=== PATIENT | female | born 1935 | race Caucasian/White ===

== ENCOUNTER 2016-11-24 07:39 | Inpatient (IN) | payer MEDICARE ==
[~2016-11-24] VITALS: Ht 170.2 cm; Wt 84.7 kg
[2016-11-24] VITALS (14 sets, daily range): BP systolic 111–156; BP diastolic 56–85; PULSE 51–89; RESP 14–20; O2SAT 93–98
[2016-11-24] MEDS: Lactated Ringer's 1,000 ML IV SCH ×3 (07:35→13:46)
[~2016-11-24 07:39] MED LIST: AMLO10TA3 PO; ASCO500C6 PO; ASPI-628 PO; ATOR10TA66 PO; Bupivacaine Liposome 1.3% 20 mL Inj INFILTRATE SCH; CHOL100043 PO; CRAN1TAB5 PO; DOCU100T2 PO; FLUT15.88 NS; HYDR25TA4 PO; LEVO137T18 PO; LOSA100T3 PO; MAGN100T5 PO; MELO-259 PO; METO25TA6 PO; MULT-1018 PO; OMEG1CAP56 PO; OMEP-113 PO; POTA10TA7 PO; SERT50TA9 PO; UBID1CAP52 PO
[2016-11-24] MEDS ORDERED: CeFAZolin 2 Gm/50 mL D5W Duplex Bag IV ONE (07:42)
[2016-11-24] MEDS: Vancomycin Inj 1,500 MG in 0.9% Sodium Chloride 500 ML IV SCH ×2 (08:02→13:47)
[2016-11-24] MEDS ORDERED: Tranexamic Acid 100 mg/mL 10 mL Inj ONE (08:44)
[2016-11-24] MEDS ORDERED: 0.9% Sodium Chloride 100 ML ONE (08:44)
[2016-11-24] MEDS ORDERED: fentaNYL-PF 50 mCg/mL 2 mL Inj ONE (09:02)
[2016-11-24] MEDS ORDERED: Propofol 10 mg/mL 20 mL Inj ONE (09:02)
[2016-11-24] MEDS: CeFAZolin Inj 2 GM in IV Premix 1 EACH IV SCH ×3 (09:02→18:34)
[2016-11-24] MEDS ORDERED: Phenylephrine 10,000 mCg/mL Inj ONE (09:02)
[2016-11-24] MEDS ORDERED: Dexamethasone 4 mg/mL Inj ONE (09:02)
[2016-11-24] MEDS ORDERED: Ondansetron 2 mg/mL 2 mL Inj ONE (09:02)
[2016-11-24] MEDS ORDERED: Bupivacaine Liposome 1.3% 20 mL Inj INFILTRATE ONE (09:48)
[2016-11-24] MEDS ORDERED: Bupivacaine-MPF 0.5% 30 mL Inj INFILTRATE ONE (09:49)
[2016-11-24] MEDS ORDERED: 0.9% Sodium Chloride 10 mL Inj INFILTRATE ONE (09:49)
[2016-11-24] MEDS ORDERED: Lactated Ringer's 1,000 ML IV ONE (09:52)
[2016-11-24] MEDS ORDERED: Polyethylene Glycol (PEG) 17 Gm Powder PO PRN (11:15)
[2016-11-24] MEDS ORDERED: diphenhydrAMINE 25 mg Capsule PO PRN (11:15)
[2016-11-24] MEDS ORDERED: Magnesium Hydroxide 10 mL Oral Concentration PO PRN (11:15)
[2016-11-24] MEDS ORDERED: Lactated Ringer's 1,000 ML IV SCH (11:32)
[2016-11-24] MEDS ORDERED: Lactated Ringer's 500 ML IV PRN (11:32)
[2016-11-24] MEDS ORDERED: EPHEDrine Sulfate 50 mg/mL Inj IVPUSH PRN (11:35)
[2016-11-24] MEDS ORDERED: HYDROmorphone 1 mg/mL Inj IVPUSH PRN (11:35)
[2016-11-24] MEDS ORDERED: Phenylephrine 10,000 mCg/mL Inj IVPUSH PRN (11:35)
[2016-11-24] MEDS ORDERED: fentaNYL-PF 50 mCg/mL 2 mL Inj IVPUSH PRN (11:35)
[2016-11-24] MEDS ORDERED: Ondansetron 2 mg/mL 2 mL Inj IVPUSH PRN (11:35)
[2016-11-24] MEDS ORDERED: MetoCLOpramide 5 mg/mL 2 mL Inj IVPUSH PRN (11:35)
[2016-11-24] MEDS ORDERED: hydrALAZINE 20 mg/mL Inj IVPUSH PRN (11:35)
[2016-11-24] MEDS ORDERED: Dexamethasone 4 mg/mL Inj IVPUSH PRN (11:35)
[2016-11-24] MEDS ORDERED: Labetalol 5 mg/mL 20 mL Inj IV PRN (11:35)
[2016-11-24] MEDS ORDERED: Atropine 0.4 mg/mL Inj IVPUSH PRN (11:35)
--- NOTE | 2016-11-24 11:45 | PCM.ANEP1 ---
Post Anesthesia PACU Phase 1 Assessment Date of Service: Nov 24, 2016 Vital Signs Vital Signs Date Time Temp Pulse Resp B/P Pulse Ox O2 Delivery O2 Flow Rate FiO2 11/24/16 11:37 68 16 117/69 93 Room Air 11/24/16 11:34 15 95 11/24/16 11:30 67 15 127/56 95 Room Air 11/24/16 11:25 69 14 114/83 95 Room Air 11/24/16 11:20 36.3 71 17 111/85 94 Room Air 11/24/16 08:04 36.4 51 16 117/85 95 Room Air Anesthetic Administered: Regional Block, SAB Level of Alertness: Awake, talking MATOS's with Equal Strength: No Pain: No Nausea or Vomiting: No CV Function & Hydration Stable: Yes Airway Device: Oxygen Delivery: Room Air Lungs: Normal Air Movement Dermatome Level: T12 (Symphysis Pubis) PACU Phase 2 Assessment Complications: No Follow up Care: N/A Patient Instructions Provided: N/A Ortiz Keller MD Nov 24, 2016 11:45
[2016-11-24] MEDS ORDERED: ASPI-973 PO (11:54)
[2016-11-24] MEDS ORDERED: OMEP20CA11 PO (11:54)
--- NOTE | 2016-11-24 11:55 | OP ---
[address] [address] OPERATIVE REPORT PATIENT: SAM BRAND : 1935 MR#: [id number] ADMIT: 11/24/2016 JOB ID: [id number] DATE OF SURGERY: 11/24/2016 PREOPERATIVE DIAGNOSIS(ES): Left knee degenerative joint disease. POSTOPERATIVE DIAGNOSIS(ES): Left knee degenerative joint disease. PROCEDURE: Left total knee arthroplasty. SURGEON: Jersey Salgado DO. ASSISTANTS: Shaina Sanford PA-C and Lara Kendall DO, PGY1. INDICATIONS: The patient is a 81-year-old female with left knee severe degenerative arthritis who has failed conservative measures and wished to proceed with a left total knee arthroplasty. We discussed the risks, benefits and possible complications of surgery. All questions were answered and she wished to proceed. A home health assistant was required for the successful completion of this procedure. PROCEDURE IN DETAIL: The patient is brought to the operating room. She was given preoperative antibiotic, 1 g TXA, preoperatively, and a surgical time-out was performed. The left lower extremity was sterilely prepped and draped. A tourniquet was used for hemostasis. An incision was made centered over the anterior left knee. Dissection was carefully carried through the subcutaneous tissue. Electrocautery was used for hemostasis. A split was then made in the quad tendon leaving a cuff of tissue for repair. This was taken along the medial retinaculum and down onto the proximal medial tibial face. A minimal subperiosteal release was performed in order to gain exposure. A portion of the fat pad was removed, as was a portion of the anterior horn of medial and lateral menisci. The patella was everted, and the femur was instrumented with an intramedullary cutting jig. A 5-degree distal valgus cut angle was chosen, and 13 mm of resection was planned for, as she had a very hypoplastic lateral femoral condyle. The block was pinned into position and the cut was performed. The tibial cut was then performed next with an extramedullary tibial cutting guide placed parallel to the long axis of the tibia. A minimal tibial cut was made initially and then, 2 mm of additional cut was performed. Her bone was quite soft and osteoporotic, unfortunately. The femur was then sized, felt to be a size 6. With 5 degrees of external rotation the femoral cutting jig was pinned into position. The distal femoral cuts were performed, completed with an osteotome. The notch cut was then performed, and the knee was then trialed with a 6 femur and 4 tibia, which worked quite nicely, allowing full flexion and full extension with equal gaps medially and laterally. The remainder of the medial and lateral menisci were removed. The tibia was drilled and punched. The femur was drilled and the bony surfaces were washed and dried. The patella was also resurfaced with a free-hand type technique, cut from initial thickness of 26 to a thickness of 15. A 38 mm patellar button was drilled for, trialed and had excellent tracking. The components were then cemented into position beginning with the DePuy Attune 4 tibia, followed by the DePuy Attune 6 narrow posterior stabilized femur and the 38 mm patellar button. A 5 mm thick poly was chosen, impacted in position and after the cement had been allowed to polymerize, the tourniquet was let down. Electrocautery was used for hemostasis. The wounds were then closed with 0 Vicryl and #1 Surgilon to repair the medial retinaculum and quad tendon. The subcu was closed with 2-0 Vicryl, and the skin was closed with a running subcuticular V-Loc suture. A mixture of Exparel, Marcaine and saline was added as an adjunct local anesthetic. Sterile dressings were applied. Patient tolerated the procedure well. Blood loss was 25 cc. POSTOPERATIVE PROTOCOL: Have the patient weightbear to tolerance, use a walker for ambulation. Will use Lovenox for DVT prophylaxis 40 mg daily for 10 days and [place] 5/325 for pain, as the patient would like to avoid narcotics as much as possible.
--- NOTE | 2016-11-24 12:10 | DRSVH ---
PROCEDURE: X-RAY LEFT KNEE, ONE OR TWO VIEWS ([id number]) INDICATIONS: post operative images TECHNIQUE: 2 view(s) of the knee acquired. COMPARISON: None. FINDINGS: Bones: Patient is status post knee joint arthroplasty. Hardware components are in expected position s. Visualized bony structures are intact. Soft tissues: Overlying postoperative changes are noted. IMPRESSION: Status post left knee arthroplasty. Dictated by: Sammie Tobar M.D. on 11/24/2016 at 12:08 Approved by: Sammie Tobar M.D. on 11/24/2016 at 12:09
--- NOTE | 2016-11-24 12:24 | PCM.HPANE ---
Patient Data Surgeon Admitting Provider: Attending Provider:Jersey Salgado DO Primary Care Physician:Sudhir Hall Other Provider:Shaylee Henley Anesthesia Reason for Visit Left Knee Arthritis Ht/WT & BMI Height (Feet): 5 Height (Inches): 7 Weight (Kilograms): 84.9 Body Mass Index 29.00 Allergies Coded Allergies: aspirin (Verified Adverse Reaction, Intermediate, heartburn with larger doses, 04/24/14) codeine (Verified Adverse Reaction, Unknown, "really sick to my stomach", 11/20/16) "intolerance to codeine" per H&P Past Anesthesia History Anesthesia History: Positive for:: Anesthesia Reactions (nausea and vomiting), Denies:: Abnormal Airway, Difficult Intubation, Fam Anesthesia Reaction, Fam Malignant Hypertherm, Malignant Hyperthermia Diabetes History Hx Diabetes?: No MRSA MRSA: No Medications Blood Thinner: Aspirin Reported Medications Aspirin 81 Mg Riwypy93 Mg PO DAILY #2 11/24/16 Omeprazole 20 Mg Capsule.dr20 Mg PO BID #180 11/24/16 Hydrochlorothiazide 25 Mg Oyavlf31 Mg PO DAILY #2 TABLET Ref 0 11/20/16 Potassium Chloride ER (Klor-Con 10)10 Meq Gjtokh04 Meq PO DAILY Ref 0 11/20/16 Magnesium Amino Acid Chelate (Magnesium)100 Mg Ouhrxp445 Mg PO DAILY 11/20/16 Meloxicam 7.5 Mg Tablet7.5 Mg PO DAILY 30 Days Ref 0 11/20/16 Sertraline HCl (Sertraline)50 Mg Zofcne04 Mg PO DAILY 30 Days Ref 0 11/20/16 Cholecalciferol (Vitamin D3) (Vitamin D)1,000 Unit Tablet1,000 Unit PO BID #1 BOTTLE Ref 0 11/20/16 Fluticasone Propionate 50 Mcg/Actuation [place].susp15.8 Ml NS DAILY 11/20/16 Cranberry Conc/C/Bacill Coag (Cranberry Tablet)1 Each Tablet1 Each PO BID 10/02/14 Ascorbic Acid (Vitamin C)500 Mg Capsule.er500 Mg PO DAILY 08/01/14 [place]-3 Fatty Acids/Fish Oil ([place] 3 1,000 mg Softgel)1 Each Capsule1 Each PO DAILY 08/01/14 Multivitamin (Multi Vitamin Daily)1 Each Tablet1 Each PO DAILY 30 Days Ref 0 08/01/14 Ubidecarenone/Vit E Acetate (Co Q-10 100 mg Softgel)1 Each Capsule1 Each PO DAILY 08/01/14 Atorvastatin Calcium 10 Mg Hqagtv12 Mg PO DAILY 30 Days Ref 0 03/27/14 Losartan Potassium (Cozaar)100 Mg Digdkb243 Mg PO DAILY 03/27/14 Amlodipine 10 Mg Ofmiuy14 Mg PO DAILY 30 Days Ref 0 03/27/14 Metoprolol Tartrate 25 Mg Duylle35 Mg PO BID 30 Days Ref 0 03/27/14 Levothyroxine (Levoxyl)137 Mcg Egkywa657 Mcg PO DAILY 30 Days Ref 0 03/27/14 Discontinued Reported Medications Docusate Sodium 100 Mg Inhoqw810 Mg PO HS PRN For Constipation 30 Days Ref 0 10/02/14 Omeprazole Magnesium (Omeprazole)20 Mg Capsule.dr20 Mg PO BID 30 Days Ref 0 03/27/14 Aspirin (Aspir 81)81 Mg Tablet.dr81 Mg PO DAILY Ref 0 03/27/14 Amoxicillin 500 Mg Ajzrkk387 Mg PO q 12 hours x 7 days 10 Days Ref 0 10/02/14 Fluticasone Propionate (Fluticasone Propionate Nasal)16 Gm [place].susp1 [place] NS BID PRN prn #16 GM Ref 0 10/02/14 Cholecalciferol (Vitamin D3) (Vitamin D)1,000 Unit Tablet1,000 Unit PO DAILY #1 BOTTLE Ref 0 08/01/14 Bupropion ER 150 Mg Tablet.er150 Mg PO BID 30 Days Ref 0 03/27/14 History History of ENT Problems?: Yes HEENT History: Positive for:: Cataracts (s/p surgery) Denies:: Abnormal Airway Difficult Intubation Dysphagia Hearing Problem Sinus Problem TMJ Denture Type: None Teeth Condition: Within Normal Limits Hx of Heart Problems?: Yes Cardiovascular History: Positive for:: Heart Murmur Hypertension Denies:: AICD Atrial Fibrillation Cardiac Surgery Chest Pain Congestive Heart Failure Coronary Artery Disease Edema Irregular Heartbeat Pacemaker Thrombophlebitis Valvular Heart Disease Hx of Respiratory Problem?: Yes Respiratory History: Positive for:: Pneumonia (hx of lung abcess) Denies:: Asthma COPD Chest Surgery Cough Dyspnea Emphysema Hemoptysis Oxygen Administration Pulmonary Embolism Tuberculosis Use of C-PAP Machine Use of Inhalers / NEBS Hx Neurologic Problems?: No Neurological History: Denies:: Alzheimer's Disease CVA Dementia Dizziness Headaches Multiple Sclerosis Parkinson's Disease Seizures TIA Hx of GI Problems?: Yes Other GI Pertinent History: Hx of Barretts Esophagus, Hiatal Hernia with repair in 2015. Patient states the hiatal hernia "has returned and needs to be repaired again". Hx of Problems?: No Genitourinary History: Positive for:: Urinary Tract Infection (currently being treated) Female Hx: Denies:: Currently Endometriosis Pelvic Inflammatory Problems with Breasts? Skin History: Denies:: History Skin Disorders? Pressure Ulcers Hx Musculoskeletal Problems?: Yes Musculoskeletal History: Positive for:: Musculoskeletal Trauma (dequervains tendonitis- wearing splint) Osteoarthritis Denies:: Back Injury Degenerative Joint Joint Replacement Hx of Psycho/Social Problems?: Yes Psycho Social History: Positive for:: Hx Depression Denies:: Anxiety Bipolar Disorder Suicide Attempt Hx Surgeries?: Yes (hysterectomy, appy, hiatal hernia) Hx Any Other Health Problems?: Yes Other History: Positive for:: Hospitalization Thyroid Disease (hypothyroidism) Denies:: Cancer Endocrine Disease History Blood Transfusions: Positive for:: Accept Blood Products? Denies:: Blood Transfuse Reaction Blood Transfusions Hx Diabetes: No Hx Alcohol Use: NoHx Substance Use: No Smoking Status: Never Smoker Have You Smoked inLast 12 mo: No Stop/Bang S-Snoring: Do You Snore Loudly: No T-Tired: feel tired, fatigued: No O-Obsered: Observed not breath: No P-Blood Pressure: treated: Yes B- Body Mass Index > 35 kg/m2: No A- Age over 50: Yes N- Neck Large Circumference: No G- Gender Male: No SKYLA Total Score: 2 Risk Assessment Category Category 1A: Patient has history of documented sleep apnea, and HAS NOT received any narcotic, sedative or anesthesia administration during this stay. Category 1B: Patient has history of documented sleep apnea, and HAS received any narcotic , sedative or anesthesia administration during this stay Category 2: Patient has SUSPECTED Obstructive Sleep Apnea, and HAS received any narcotic , sedative or anesthesia administration during this stay. Category 3: Patient has SUSPECTED Obstructive Sleep Apnea and HAS NOT received narcotic, sedative or anesthesia administration during this stay. Category 4: Outpatient in Procedural Areas with known sleep apnea or who screen positive for High Risk via the STOP/BANG questionnaire. Exam Exam General Appearance: Alert, Oriented X3, Cooperative, No Acute Distress HEENT/AIRWAY: MP 2, Neck Movement (from), Mouth Opening (3 FBMO) Lungs: Clear to Auscultation, Normal Air Movement Heart: Exam Unremarkable, Regular Rate/Rhythm, No Murmurs/Rubs/Gallops Meds/Labs/Diagnostics Admission Meds Current Medications Vancomycin HCl 1500 mg/Sodium Chloride 500 ml @ 333.333 mls/hr PREOP IV Last administered on 11/24/16 08:02; Start 11/24/16 at 06:00; Stop 11/24/16 at 18:00 Lactated Ringer's (Lr) 1,000 ml @ 120 mls/hr Q8H20M IV Last administered on 07:35; Start 11/24/16 at 05:00; Stop 11/24/16 at 13:19 Plan Impression Patient chart reviewed, patient interviewed and anesthestic plan with risks, benefits, and alternatives discussed, and informed consent obtained. NPO per Anesth. Guidelines: Yes ASA Physical Status: ASA2 Mod Systemic Disease Anesthetic Plan: Regional Block (LEFT ADDUCTOR CANAL BLOCK), SAB Bene/Risks/Altern/Consents: Yes HP Complete Prior to Induction: Yes Jersey Leon MD Nov 24, 2016 08:06
[2016-11-24] MEDS: 0.9% Sodium Chloride 1,000 ML IV SCH (14:09)
[2016-11-24 15:36] LABS: APPEARANCE,URINE HAZY (CLEAR,HAZY); COLOR,URINE STRAW (YELLOW); OCCULT BLOOD,URINE NEGATIVE (NEGATIVE); UROBILINOGEN,URINE NORMAL (NORMAL)
[2016-11-24] MEDS: Acetaminophen IV 1,000 MG in IV Premix 1 EACH IV PRN ×2 (16:09→22:12)
[2016-11-24] MEDS ORDERED: CeFAZolin Inj 2 GM in Dextrose 5% 50 ML IV SCH (17:15)
[2016-11-24] MEDS: Sodium Chloride LOK Flush 10 mL Syringe IV SCH (18:34)
[2016-11-24] MEDS: HYDROcodone-APAP 5-325 mg Tablet PO PRN (18:37)
[2016-11-24] MEDS ORDERED: Non-Formulary Medication (Cranberry Conc/C/Bacill Coag (Cranberry Tablet) 1 EACH) PO SCH (20:30)
[2016-11-24] MEDS: Senna-Docusate 8.6-50 mg Tablet PO SCH (20:33)
[2016-11-25] VITALS (7 sets, daily range): BP systolic 130–151; BP diastolic 55–71; PULSE 67–81; RESP 16–20; O2SAT 93–97
[2016-11-25] MEDS: Sodium Chloride LOK Flush 10 mL Syringe IV SCH ×3 (00:14→16:30)
[2016-11-25] MEDS: HYDROcodone-APAP 5-325 mg Tablet PO PRN ×3 (00:14→23:51)
[2016-11-25] MEDS: 0.9% Sodium Chloride 1,000 ML IV SCH ×3 (00:14→13:27)
[2016-11-25] MEDS: CeFAZolin Inj 2 GM in IV Premix 1 EACH IV SCH (02:38)
[2016-11-25] MEDS: Ondansetron 2 mg/mL 2 mL Inj IVPUSH PRN ×3 (04:35→11:35)
[2016-11-25] MEDS: Acetaminophen IV 1,000 MG in IV Premix 1 EACH IV PRN (04:56)
[2016-11-25 06:19] LABS: BASOPHILS % (AUTO) 0.2 % (0-3); EOSINOPHILS % (AUTO) 0.2 % (0-5); MONOCYTES % (AUTO) 15.6 % (4-12); Mean Corpuscular Hemoglobin 30.2 pg (27.0-35.0); Mean Corpuscular Volume 91.2 fL (81-100); NEUTROPHILS % (AUTO) 74.2 % (40-74); Platelet Count 359 bil/L (150-400)
[2016-11-25] MEDS: hydrOXYzine Pamoate 25 mg Capsule PO PRN (08:25)
[2016-11-25] MEDS: Pantoprazole 40 mg ER24 Tablet PO SCH ×2 (08:26→20:39)
[2016-11-25] MEDS: Ascorbic Acid 500 mg Tablet PO SCH (08:30)
[2016-11-25] MEDS ORDERED: MAGNESIUM AMINO ACID CHELATE PO SCH (08:30)
[2016-11-25] MEDS: Fluticasone 0.05% 15 Spray/2 Gm 16 Gm Nasal Spray NASAL SCH (08:30)
[2016-11-25] MEDS: Senna-Docusate 8.6-50 mg Tablet PO SCH ×2 (08:30→20:39)
--- NOTE | 2016-11-25 09:03 | PCM.PNORTH ---
Subjective Date of Service: Nov 25, 2016 Visit Information: Reason for Visit Left Knee Arthritis Surgery/Surgery Date LEFT TOTAL KNEE REPLACEMENT 11/24/16 Post-Op Day # 1 Date of Admission: Nov 24, 2016 at 13:20 Hospital Day # Subjective Patient complained of nausea and vomiting last night. The nerve block is now worn off and she is having quite a bit of pain in the incisional area Pain Management: PO Objective Exam Objective Patient is seen in bed Vital Signs and I/O Vital Sign - Last Date Time Temp Pulse Resp B/P Pulse Ox O2 Delivery O2 Flow Rate FiO2 11/25/16 07:58 37.0 73 20 138/61 93 Room Air 11/24/16 12:34 2 Intake and Output 11/24/16 11/24/16 11/25/16 Cumulative From/Thru 15:00 23:00 07:00 11/20/16 09:09 - 11/25/16 06:16 Intake Total 2270 ml 913 ml 1088 ml 4271 ml Output Total 975 ml 1200 ml 1250 ml 3425 ml Balance 1295 ml -287 ml -162 ml 846 ml Intake Oral 400 ml 400 ml IV Total 2270 ml 513 ml 1088 ml 3871 ml Output Urine Total 950 ml 1200 ml 1250 ml 3400 ml Drainage Total 0 ml 0 ml Estimated Blood Loss 25 ml 25 ml Lab & Micro Results Laboratory Tests Test 11/24/16 15:13 11/25/16 05:40 Urine Color Straw (YELLOW) Urine Appearance Hazy (CLEAR,HAZY) Urine pH 7.0 (5.0-8.0) Urine Specific [place] 1.005 (1.003-1.035) Urine Protein Negativemg/dL (NEG,TRACE) Urine Glucose (UA) Negativemg/dL (NEGATIVE) Urine Ketones Negativemg/dL (NEGATIVE) Urine Occult Blood Negative (NEGATIVE) Urine Nitrite Negative (NEGATIVE) Urine Bilirubin Negative (NEGATIVE) Urine Urobilinogen Normalmg/dL (NORMAL) Urine Leukocyte Esterase Negative (NEGATIVE) Urine RBC 0-2/hpf (0-2) Urine WBC 0-5/hpf (0-5) Urine Epithelial Cells Occasional/hpf (NONE-MOD) Urine Crystals None seen (NONE SEEN) Urine Bacteria None/hpf (NONE-FEW) Urine Hyaline Casts None/lpf (NONE) Urine Granular Casts None seen (NONE SEEN) Urine Waxy Casts None seen (NONE SEEN) Urine Red Blood Cell Casts None seen (NONE SEEN) Urine White Blood Cell Casts None seen (NONE SEEN) Urine Mucus None seen (None Seen) Urine Trichomonas None seen (NONE SEEN) Urine Yeast None (NONE SEEN) Urinalysis Comment None Urine Culture Reflexed Not indicated White Blood Count 11.1th/mm3 (3.8-10.1) Red Blood Count 3.31mil/mm3 (3.90-5.20) Hemoglobin 10.0g/dL (12.0-15.6) Hematocrit 30.2% (35.0-46.0) Mean Corpuscular Volume 91.2fL (81-100) Mean Corpuscular Hemoglobin 30.2pg (27.0-35.0) Mean Corpuscular Hemoglobin Concent 33.1% (32.0-37.0) Red Cell Distribution Width 13.5% (12.3-15.4) Platelet Count 359bil/L (150-400) Neutrophils (%) (Auto) 74.2% (40-74) Lymphocytes (%) (Auto) 9.5% (14-46) Monocytes (%) (Auto) 15.6% (4-12) Eosinophils (%) (Auto) 0.2% (0-5) Basophils (%) (Auto) 0.2% (0-3) Sodium Level 140mEq/L (134-144) Potassium Level 4.0mEq/L (3.5-5.2) Chloride Level 101mEq/L (97-108) Carbon Dioxide Level 24mmol/L (18-29) Blood Urea Nitrogen 13mg/dL (8-27) Creatinine 0.67mg/dL (0.57-1.00) Estimat Glomerular Filtration Rate 122mL/min (>59) Glucose Level 117mg/dL (60-99) Calcium Level 9.4mg/dL (8.5-10.1) Result Diagram: 11/25/1653911/25/16539 General Appearance: Alert, Oriented X3, Cooperative, No Acute Distress Extremities: Distal Pulses Palpable, No Compartment Syndrom Noted, Thigh & Calf Soft/Nontender Postop Sensory Motor: Distal Motor Intact, Distal Sensation Intact, NVI Distally SURGICAL WOUND : Wound Location/Description Left knee: Surgical dressing is clean, dry and intact Activity: Activity per PT Catheters: None Assessment & Plan Impression POD#1 status post left total knee arthroplasty Problems: Plan Weightbearing: Weightbearing as tolerated with a front wheeled walker DVT prophylaxis: Lovenox 40 mg subcutaneous 2 weeks followed by aspirin 325 mg twice a day 4 weeks Physical therapy for transfers, progressive ambulation, therapeutic exercise Wound care: PA will change dressing on postop day 2 Analgesia: Tramadol and oxycodone are added as alternatives. Reglan is also added as an antimanic Discharge plan: Discharge on Wednesday to a shelter facility for physical therapy, occupational therapy and nursing care. Follow-up plan: In 2 weeks at [facility] with PA for wound check and at [address] Salgado with x-rays Pain Management: Tylenol IV, [place] VTE Prophylaxis: Sub-Q Enoxaparin, SCDs Resuscitation Status: CPR: Attempt Resuscitation Shaina Sanford PA-C Nov 25, 2016 09:03
[2016-11-25] MEDS ORDERED: MetoCLOpramide 5 mg/mL 2 mL Inj IVPUSH PRN (09:05)
[2016-11-25] MEDS ORDERED: HYDROmorphone 1 mg/mL Inj IVPUSH PRN (13:30)
[2016-11-26] MEDS: Sodium Chloride LOK Flush 10 mL Syringe IV SCH ×3 (00:14→08:42)
[2016-11-26] MEDS: 0.9% Sodium Chloride 1,000 ML IV SCH ×3 (00:14→23:14)
[2016-11-26 04:45] VITALS: BP 125/57; PULSE 73; RESP 18; O2SAT 98
[2016-11-26 05:32] LABS: BASOPHILS % (AUTO) 0.2 % (0-3); EOSINOPHILS % (AUTO) 0.5 % (0-5); MONOCYTES % (AUTO) 19.2 % (4-12); Mean Corpuscular Hemoglobin 30.5 pg (27.0-35.0); Mean Corpuscular Volume 91.3 fL (81-100); NEUTROPHILS % (AUTO) 64.9 % (40-74); Platelet Count 348 bil/L (150-400)
[2016-11-26] MEDS: Fluticasone 0.05% 15 Spray/2 Gm 16 Gm Nasal Spray NASAL SCH (08:30)
[2016-11-26] MEDS: Senna-Docusate 8.6-50 mg Tablet PO SCH ×2 (08:38→20:06)
[2016-11-26] MEDS: Pantoprazole 40 mg ER24 Tablet PO SCH ×2 (08:39→20:06)
[2016-11-26] MEDS: HYDROcodone-APAP 5-325 mg Tablet PO PRN ×6 (08:39→23:54)
[2016-11-26] MEDS: Ascorbic Acid 500 mg Tablet PO SCH (08:39)
--- NOTE | 2016-11-26 08:53 | PCM.PNORTH ---
Subjective Date of Service: Nov 26, 2016 Visit Information: Reason for Visit Left Knee Arthritis Surgery/Surgery Date LEFT TOTAL KNEE REPLACEMENT 11/24/16 Post-Op Day # 2 Date of Admission: Nov 24, 2016 at 13:20 Hospital Day # Subjective Patient reports pain management is much better today. The addition of Dilaudid was quite helpful. She has been out of bed multiple times to bedside commode but has not really done any walking yet. She states that she had a good night' s sleep.Nausea has improved. Postop General: No Shortness of Breath, No Chest Pain Pain Management: PO Objective Exam Objective Patient is seen lying in bed Vital Signs and I/O Vital Sign - Last Date Time Temp Pulse Resp B/P Pulse Ox O2 Delivery O2 Flow Rate FiO2 11/26/16 04:45 37.2 73 18 125/57 98 Nasal Cannula 1.00 Intake and Output 11/25/16 11/25/16 11/26/16 Cumulative From/Thru 15:00 23:00 07:00 11/20/16 09:09 - 11/26/16 05:05 Intake Total 840 ml 1726 ml 526 ml 7363 ml Output Total 1300 ml 4725 ml Balance 840 ml 426 ml 526 ml 2638 ml Intake Oral 840 ml 420 ml 1660 ml IV Total 1306 ml 526 ml 5703 ml Output Urine Total 1300 ml 4700 ml Drainage Total 0 ml Estimated Blood Loss 25 ml # Bowel Movements 0 0 0 Lab & Micro Results Laboratory Tests Test 11/26/16 05:02 White Blood Count 9.1th/mm3 (3.8-10.1) Red Blood Count 3.11mil/mm3 (3.90-5.20) Hemoglobin 9.5g/dL (12.0-15.6) Hematocrit 28.4% (35.0-46.0) Mean Corpuscular Volume 91.3fL (81-100) Mean Corpuscular Hemoglobin 30.5pg (27.0-35.0) Mean Corpuscular Hemoglobin Concent 33.5% (32.0-37.0) Red Cell Distribution Width 13.5% (12.3-15.4) Platelet Count 348bil/L (150-400) Neutrophils (%) (Auto) 64.9% (40-74) Lymphocytes (%) (Auto) 14.8% (14-46) Monocytes (%) (Auto) 19.2% (4-12) Eosinophils (%) (Auto) 0.5% (0-5) Basophils (%) (Auto) 0.2% (0-3) Sodium Level 138mEq/L (134-144) Potassium Level 3.2mEq/L (3.5-5.2) Chloride Level 100mEq/L (97-108) Carbon Dioxide Level 28mmol/L (18-29) Blood Urea Nitrogen 6mg/dL (8-27) Creatinine 0.58mg/dL (0.57-1.00) Estimat Glomerular Filtration Rate 144mL/min (>59) Glucose Level 112mg/dL (60-99) Calcium Level 9.0mg/dL (8.5-10.1) Result Diagram: 11/26/16 0502 11/26/16 0502 General Appearance: Alert, Oriented X3, Cooperative, No Acute Distress Extremities: Distal Pulses Palpable, No Compartment Syndrom Noted, Thigh & Calf Soft/Nontender Postop Sensory Motor: Distal Motor Intact, Distal Sensation Intact, NVI Distally SURGICAL WOUND : Wound Location/Description Left knee: Surgical dressing is removed. The wound is well approximated and Steri-Strips are in place. There is very minimal serous drainage on the bandage. The wound is cleansed with hydrogen peroxide. There is no erythema present. The wound was dressed with Silverlon and an ABD pad held in place with an Cordell wrap. Activity: Activity per PT Catheters: None Assessment & Plan Impression POD #2 status post left total knee arthroplasty Problems: Plan Weightbearing: Weightbearing as tolerated with a front wheeled walker DVT prophylaxis: Lovenox 40 mg subcutaneous 2 weeks followed by aspirin 325 mg twice a day 4 weeks Physical therapy for transfers, progressive ambulation, therapeutic exercise Wound care: Dressing changed today to Silverlon and ABD, covered with an Cordell wrap. Nursing please applied thigh-high BIMAL hose today and remove the Cordell wrap. Analgesia: Tramadol, tylenol, oxycodone, Dilaudid Discharge plan: Discharge on Wednesday to a group home facility for physical therapy, occupational therapy and nursing care. Follow-up plan: In 2 weeks at [facility] with PA for wound check and at [address] Salgado with x-rays Pain Management: Oxycodone, Dilaudid, tramadol, Tylenol VTE Prophylaxis: Sub-Q Enoxaparin, SCDs Resuscitation Status: CPR: Attempt Resuscitation [place] DetourShaina Ribeiro PA-C Nov 26, 2016 08:53
[2016-11-26 11:01] VITALS: PULSE 63
[2016-11-26 11:37] VITALS: BP 111/66; PULSE 60; RESP 16; O2SAT 94
[2016-11-26] MEDS: hydrOXYzine Pamoate 25 mg Capsule PO PRN ×2 (20:07→23:53)
[2016-11-26 20:26] VITALS: BP 119/49; PULSE 74; RESP 18; O2SAT 97
[2016-11-27] MEDS: Sodium Chloride LOK Flush 10 mL Syringe IV SCH ×2 (00:30→08:36)
[2016-11-27] MEDS: HYDROcodone-APAP 5-325 mg Tablet PO PRN ×2 (03:59→08:35)
[2016-11-27] MEDS: hydrOXYzine Pamoate 25 mg Capsule PO PRN ×2 (03:59→08:36)
[2016-11-27 04:56] VITALS: BP 123/63; PULSE 64; RESP 18; O2SAT 96
--- NOTE | 2016-11-27 06:15 | PCM.DIORTH ---
Ortho Discharge Instruction Date of Service: Nov 27, 2016 Dates of Hospitalization Date of Hospital Admission Nov 24, 2016 at 13:20 Providers Admitting Physician: Jersey Salgado DO Primary Care Physician: Sudhir Hall Attending Physician: Jersey Salgado DO Diet Discharge Diet: No restrictions Activity Discharge Activity-General: Be up and about, Balance rest and activity, Elevate & ice extremity, Activity as pain allows, Activity as energy allows, No driving while taking narcotic Left Lower Extremity: Weight Bearing as tolerated Discharge Assist Device: Front Wheeled Walker Dressing and Incisional Care Discharge Dressing Care: Keep dressing clean, dry & intact, Change soiled dressing Discharge Hygiene: May shower after (patient may shower after wound has been dry for 24 hours), DO NOT soak incision under water, NO bathtub, hot tub or whirlpool Additional Instructions Discharge Instructions Weightbearing: Weightbearing as tolerated with a front wheeled walker. Continue physical therapy for mobility, gait and safety. Continue by mouth pain medication only and discontinue any IV pain medication. DVT prophylaxis: Lovenox 40 mg subcutaneous 2 weeks followed by aspirin 325 mg twice a day 4 weeks Wound care: Change dressing as needed if soiled or loosened Continue bilateral thigh-high BIMAL hose. Continue bilateral SCDs while in bed. Follow-up in 2 weeks at [facility] with mid-level provider for wound check and suture removal. Follow-up in 6 weeks at [facility] with Dr. Jersey Salgado with left two-view knee x-rays on arrival. Discharge to care home facility today on 11/27/2016. Follow Up Plan Follow Up Plan Follow up in 2 weeks, 6 weeks and 12 weeks postoperatively. Follow up when necessary in the interim. Follow-up Provider (F9): Jersey Salgado DO Follow-up appointment: Weeks (follow-up in 2 weeks at [facility] with mid-level provider for wound check and suture removal) Call your provider for: Fever, Chills, Shortness of breath, Vomitting, Drainage at incision Aron Taylor PA-C Nov 27, 2016 06:14
[2016-11-27] MEDS ORDERED: HYDR-4003 PO (06:24)
[2016-11-27] MEDS ORDERED: ENOX40DI8 SUBQ (06:24)
[2016-11-27] MEDS ORDERED: OXYC-530 PO (06:24)
[2016-11-27] MEDS ORDERED: HYDR-3797 PO (06:24)
[2016-11-27] MEDS ORDERED: DOCU-41 PO (06:24)
--- NOTE | 2016-11-27 06:29 | PCM.PNORTH ---
Subjective Date of Service: Nov 27, 2016 Visit Information: Reason for Visit Left Knee Arthritis Surgery/Surgery Date LEFT TOTAL KNEE REPLACEMENT 11/24/16 Post-Op Day # Date of Admission: Nov 24, 2016 at 13:20 Hospital Day # Subjective Found patient sleeping this morning and easily awakened. She has well- positioned bed with bilateral thigh-high BIMAL hose and bilateral SCDs in place. Patient is very pleasant and discusses today that she has made advanced arrangements for discharge to long-term facility and she is convinced that her insurance will cover this and she has been assured that this is arranged an therapist has accepted her. She has no complaints of pain at this time and has performed reasonably well with physical therapy. Patient does live alone and is concerned with her ability to manage postoperatively and believe she will likely stay at a skilled facility for approximately 1 week prior to discharging to home. Postop General: No Complaints, No Shortness of Breath, No Chest Pain Pain Management: PO Objective Exam Objective Alert and oriented 3 and pleasant. Postoperative dressing is clean dry and intact. Calf and thigh are soft and nontender. Toe wiggle and sensation are intact at left lower extremity distally Bilateral BIMAL hose and bilateral SCDs are in place. Gait time 60 feet with formal physical therapy on 11/26/2016. Recommendation for discharge to home. Vital Signs and I/O Vital Sign - Last Date Time Temp Pulse Resp B/P Pulse Ox O2 Delivery O2 Flow Rate FiO2 11/27/16 04:56 36.7 64 18 123/63 96 Nasal Cannula 1.00 Intake and Output 11/26/16 11/26/16 11/27/16 Cumulative From/Thru 15:00 23:00 07:00 11/20/16 09:09 - 11/27/16 06:13 Intake Total 1137 ml 1505 ml 400 ml 09211 ml Output Total 3000 ml 900 ml 700 ml 9325 ml Balance -1863 ml 605 ml -300 ml 1080 ml Intake Oral 1137 ml 820 ml 400 ml 4017 ml IV Total 685 ml 6388 ml Output Urine Total 3000 ml 900 ml 700 ml 9300 ml Drainage Total 0 ml Estimated Blood Loss 25 ml # Voids 4 4 # Bowel Movements 0 0 0 0 Result Diagram: 11/26/16 0502 11/26/16 0502 General Appearance: Alert, Oriented X3, Cooperative, No Acute Distress Extremities: No Compartment Syndrom Noted, Thigh & Calf Soft/Nontender Postop Sensory Motor: Movement in Toes, Distal Sensation Intact Activity: Activity per PT, Ambulate with PT (weightbearing as tolerated on the left lower extremity using front wheeled walker) Catheters: None Assessment & Plan Plan Postoperative day #3 from left total knee arthroplasty performed on 11/24/[address] Jersey Salgado. Weightbearing: Weightbearing as tolerated with a front wheeled walker. Continue physical therapy for mobility, gait and safety. Continue by mouth pain medication only and discontinue any IV pain medication. DVT prophylaxis: Lovenox 40 mg subcutaneous 2 weeks followed by aspirin 325 mg twice a day 4 weeks Wound care: Change dressing as needed if soiled or loosened Continue bilateral thigh-high BIMAL hose. Continue bilateral SCDs while in bed. Follow-up in 2 weeks at [facility] orthopedic clinic with mid-level provider for wound check and suture removal. Follow-up in 6 weeks at [facility] orthopedic clinic with Dr. Jersey Salgado with left two-view knee x-rays on arrival. Discharge to long-term facility today on 11/27/2016 VTE Prophylaxis: Sub-Q Enoxaparin, SCDs (bilateral SCDs), BIMAL Hose (bilateral thigh-high BIMAL hose) Resuscitation Status: CPR: Attempt Resuscitation Aron Taylor PA-C Nov 27, 2016 06:29
[2016-11-27] MEDS: Fluticasone 0.05% 15 Spray/2 Gm 16 Gm Nasal Spray NASAL SCH (08:30)
[2016-11-27] MEDS: Ascorbic Acid 500 mg Tablet PO SCH (08:30)
[2016-11-27 08:32] VITALS: BP 145/67; PULSE 60
[2016-11-27] MEDS: Senna-Docusate 8.6-50 mg Tablet PO SCH (08:36)
[2016-11-27] MEDS: Pantoprazole 40 mg ER24 Tablet PO SCH (08:36)
[2016-11-27] MEDS: 0.9% Sodium Chloride 1,000 ML IV SCH (09:14)
== END 2016-11-27 11:04 | DRG 470 ==
LOC: SAS 07:39 → OSC 13:20
PROVIDERS: ADMIT Orthopaedic Surgery; ATTEND Orthopaedic Surgery
PROC: 0SRD0J9 Replacement of Left Knee Joint with Synthetic Substitute, Cemented, Open Approach (ICD-10-PCS; principal; 2016-11-24 09:45)
DX: M17.12 Unilateral primary osteoarthritis, left knee (principal)